=== PATIENT | female | born 1980 | race African-American/Black ===

== ENCOUNTER → 2016-11-27 | Outpatient (CLI) | payer BC ==
--- NOTE | ~2016-11-27 | CT4 ---
[facility] A Service of [facility] RADIOLOGY TEXT RESULTS PATIENT: BIANCA SHERWOOD LOCATION: [facility] : [birth year] UNIT #: [id number] AGE: [address]: Twila Rodriguez MD SEX: F ORDER DR: [id number] [address] [address] [id number] O MR#: [id number] Acc #: [id number] NAME: BIANCA SHERWOOD : 1980 SEX: F STUDY DATE/TIME: 11/27/2016 11:45 UNIT: [facility] ROOM: STUDY DESCRIPTION: CT Abd and Pelv Wo Cont Attending Physician: Twila Rodriguez M.D. Referring Physician: Twila Rdoriguez M.D. Ordering Physician: Twila Rodriguez M.D. Primary Care Physician: Twila Rodriguez M.D. MEDICAL IMAGING REPORT This report is preliminary unless electronic signature is present. EXAM CT abdomen and pelvis without contrast, 11/27/2016, 1145 hours. HISTORY 36-year-old woman complaining of left flank pain since 11/23/2016 with hematuria for 4 days. No prior history of kidney stones. COMPARISON None. TECHNIQUE Helical noncontrasted images were obtained from the lung bases through the pubic symphysis without oral or intravenous contrast. Sagittal and coronal reconstructions were performed. Total exam DLP 1224 mGy-cm. This CT exam was performed with one or more of the following radiation dose reduction techniques: Automatic exposure control, adjustment of mA and/or kV according to patient size, and iterative reconstruction. FINDINGS Images through the lung bases are clear. There are no effusions. The distal esophagus is normal. Noncontrasted images through the abdomen demonstrate a normal appearance to the liver, spleen, pancreas, gallbladder and bile ducts. The adrenal glands are normal. The kidneys demonstrate no definite stone, mass or obstruction. There is no pelvocaliectasis or ureterectasis. No ureteral calculus is seen. The bladder appears normal. There are bilateral lower pelvic phleboliths. The stomach is contracted and unopacified but appears normal. The small bowel is nondilated. The terminal ileum is normal. The appendix is normal. There are diverticula at the cecum, ascending colon, portions of STS. [facility] A Service of [facility] RADIOLOGY TEXT RESULTS PATIENT: BIANCA SHERWOOD LOCATION: [facility] : [birth year] UNIT #: [id number] AGE: [address]: Twila Rodriguez MD SEX: F ORDER DR: the descending colon. There is no colonic wall thickening. CT pelvis demonstrates a normal-appearing anteverted uterus. There are bilateral tubal ligation clips. There is no adnexal mass or pelvic free fluid. Bone window images demonstrate no degenerative change or fracture in the lumbar spine. There is sclerotic change at the iliac side of both sacroiliac joints. IMPRESSION 1. No renal or ureteral calculi seen. 2. There are colonic diverticula predominantly in the right colon and ascending colon without CT evidence of diverticulitis. 3. Contracted gallbladder with no stones. 4. Normal pancreas. 5. There is thinning of the rectus fascia at the umbilicus with small bowel protruding slightly into this umbilical hernia. There is no obstruction. No dilatation of small bowel or colon. STAT * RESULT Dictated by... Salena Mcdonald M.D. THIS IS AN ELECTRONICALLY VERIFIED REPORT Salena Mcdonald M.D. at 11/27/2016 2:32 PM ANURADHA/mary TD: 11/27/2016 12:59 JOB #: [id number] MEDICAL IMAGING REPORT Page 1 of 1
== END | disposition home or self-care (01) ==
LOC: SCT 10:45 → EDBD 10:59 → SCT 10:59
DX: R31.9 Hematuria, unspecified (principal); R10.9 Unspecified abdominal pain; K57.30 Diverticulosis of large intestine without perforation or abscess without bleeding; K82.0 Obstruction of gallbladder; K42.9 Umbilical hernia without obstruction or gangrene
CPT/HCPCS: 74176